=== PATIENT | female | born 1955 | race Caucasian/White ===

== ENCOUNTER → 2020-05-16 13:31 | Outpatient (CLI) | payer MEDICARE, SELFPAY ==
[2020-05-16 13:56] LABS: Alanine Aminotransferase 35 U/L (12-78); Albumin Level 4.1 g/dl (3.5-5.0); Albumin/Globulin Ratio 1.4 (1.1-1.8); Alkaline Phosphatase 71 U/L (38-126); Anion Gap 14.6 mEq/L (5-15); Aspartate Amino Transferase 38 U/L (14-36); Bilirubin,Total 0.7 mg/dl (0.2-1.3); Blood Urea Nitrogen 23 mg/dl (7-17); Calcium 10.3 mg/dl (8.4-10.2); Carbon Dioxide 26 mmol/L (22.0-30.0); Chloride 105 mmol/L (98-107); Chol/HDL Ratio 2.7 (1-3.5); Cholesterol 168 mg/dl (140-200); Estimated Glomerular Filt Rate 63 ml/min (>60); GFR (African American) 76 ML/MIN (>60); Globulin 2.9 g/dL (1.3-3.2); Glucose 121 mg/dl (74-100); HDL Cholesterol 63 mg/dl (40-60); Potassium 4.6 mmoL/L (3.5-5.1); Sodium 141 mmol/L (136-145); Triglycerides 160 mg/dl (30-150); VLDL Cholesterol 32 mg/dL (0-40)
[2020-05-16 14:08] LABS: Direct LDL Cholesterol 89.87 mg/dL (100-129)
[2020-05-16 14:15] LABS: T4 (Thyroxine) 11.2 ug/dl (5.53-11.0)
[2020-05-16 21:00] LABS: Hemoglobin A1C 6.5 % (4.0-6.0)
== END ==
PROVIDERS: Visit Provider Family Medicine
DX: E11.9 Type 2 diabetes mellitus without complications (principal); E78.5 Hyperlipidemia, unspecified
CPT/HCPCS: 80053; 80061; 83036; 84436; 84443

== ENCOUNTER 2025-07-02 11:09 | Outpatient (CLI) | payer MEDICARE, SELFPAY ==
--- NOTE | 2025-07-02 11:15 | CT_ITS ---
APPROVED REPORT Production Director: CLINICAL INDICATION Chest Pain TECHNIQUE Image Acquisition: A 128 slice MDCT scanner ([employer] [place] View) was used for data acquisition. A noncontrast coronary calcium scan was performed. A CT attenuation threshold of 130 Hounsfield units (HU) was used for the detection of calcium in contiguous voxels of 1 sq mm in area to be counted as individual lesions. Bolus tracking in the ascending aorta with a threshold of 180 HU was performed. Immediately afterwards, ECG synchronized cardiac CT was then performed from the cardiac base to apex using retrospective gating with ECG tube current modulation. A total of 85 mL of Isovue 370 mg/mL contrast medium was administered at 5 mL/sec followed by a saline flush using a biphasic injection protocol. A tube voltage of 120 KVp was used. The patient received no medications prior to the cardiac CT. The average heart rate at the time of acquisition was 56 bpm and regular. Image Reconstruction Transaxial images were reconstructed at 0.67 mm slide thickness. Data was reviewed interactively on an advanced workstation capable of 2 and 3-dimensional displays in all conventional reconstruction formats, including multiplanar reformations, maximum intensity projections, curved multiplanar reformations, and volume rendered reconstructions. When applicable, selected routine images describing the relevant coronary anatomy and pathology were saved and sent to PACS. Complications None Technical Quality Overall image quality was good. Coronary artery opacification was adequate. Total DLP (Dose-Length Product) is 1278.1 mGy-cm. The reported value represents the total of one or more individual components during the CT acquisition of this date and at this time, and as such, the same value may appear in more than one CT report depending on the interpreting/reporting physicians. COMPARISON None FINDINGS CT Coronary Calcium Scoring LMA (Left Main Artery) = 28 LAD (Left Anterior Descending) = 0 LCX (Left Coronary Circumflex) = 0 RCA (Right Coronary Artery) = 0 Total Calcium Score = 28 using the AJ-130 method. The observed calcium score of 28 is at 54th percentile for subjects of the same age, sex, and race/ethnicity. The interpretation of the calcium heart score is based on the following continuum*: 0 = no calcified plaque detected (risk of coronary artery disease is very low ??? less than 5%) 1-10 = calcium detected in extremely minimal levels (risk of coronary diseases is still low ??? less than 10%) 11-100 = mild levels of plaque detected with certainty (mild or minimal narrowing of heart arteries is likely) 101-400 = definite,at least moderate levels of plaque detected (relatively high risk of a heart attack within 3-5 years) >401-999 = extensive levels of plaque detected (high risk of heart attack, high levels of vascular disease are present, high likelihood of at least one significant coronary narrowing) *The calcium heart score quantifies the burden of coronary calcification/plaque in the coronary arteries. The calcium heart score is not able to evaluate the presence or burden of non-calcified (i.e. soft) plaque. There is mild calcification in the ascending thoracic aorta. Coronary CT Angiography The coronary arterial system is right dominant. Quantitative Stenosis Grading: Left Main (LM): The left main originates normally from the left sinus of Valsalva. The LM bifurcates into the left anterior descending artery and left circumflex artery. There is calcified plaque in the proximal LM segment, with < 25% luminal stenosis. Left Anterior Descending (LAD) and Diagonal Branches: The LAD gives off 2 diagonal branch(es). There is noncalcified plaque present in the proximal LAD segment, with up to 24-49% luminal stenosis. There is no evidence of LAD-myocardial bridge. Left Circumflex (LCX) and Obtuse Marginals (OM): The LCX gives off 1 Obtuse Marginal (OM) branch(es). The LCX and its branches are patent with no evidence of atherosclerosis. Right Coronary Artery (RCA): The RCA originates normally from the right sinus of Valsalva. The RCA gives off a posterior descending artery (PDA) and posterolateral (PL) branches. The RCA and its branches are patent with no evidence of atherosclerosis. Non-Coronary Cardiac Findings: Analysis of the left ventricular (LV) structure and function was performed after 3-D reconstruction of the LV from axial images, with user-corrected automatic contouring for assessment of LV volumes and user-defined reconstruction from oblique planes for measurement of 3-D cardiac structure and function. -The left ventricle systolic function is normal. -There is no left atrial appendage filling defect. Two right pulmonary veins and two left pulmonary veins drain normally into the left atrium. -No pericardial thickening or calcification. -Central and branch pulmonary arteries in the [id number] are unremarkable. -Thoracic aorta within the visualized thoracic aortic-branches in the [id number]-[id number] is unremarkable. Extracardiac Structures No significant extra-cardiac findings. Note, however, that this study is focused on the cardiac findings. IMPRESSION - Presence of coronary calcification with an Agatston score = 28 using the AJ-130 method. -The observed calcium score of 28 is at 54th percentile for subjects of the same age, sex, and race/ethnicity. - Mild atherosclerotic coronary disease in the LM and proximal LAD, with no evidence of significant flow-limiting atherosclerosis of the coronary arteries. -CAD-RADS 2. Management recommendations per ACC/AHA guidelines*, as clinically appropriate. -Mild calcification in the ascending thoracic aorta. *Recommendations: CAD RADS 0: Reassurance. Consider non-atherosclerotic causes of chest pain. CAD RADS 1: Consider non-atherosclerotic causes of chest pain. Consider preventive therapy and risk factor modification. CAD RADS 2: Consider non-atherosclerotic causes of chest pain. Consider preventive therapy and risk factor modification, particularly for patients with nonobstructive plaque in multiple segments. CAD RADS 3: Consider further functional testing. Consider symptom-guided anti-ischemic and preventive pharmacotherapy as well as risk factor modification per published guideline statements. CAD RADS 4A: Consider further functional testing or invasive coronary angiography with revascularization per published guideline statements. Consider symptom-guided anti-ischemic and preventive pharmacotherapy as well as risk factor modification per published guideline statements. CAD RADS 4B: Invasive coronary angiography recommended with revascularization per published guideline statements. Consider symptom-guided anti-ischemic and preventive pharmacotherapy as well as risk factor modification per published guideline statements. CAD RADS 5: Consider invasive angiography and/or viability assessment with revascularization per published guideline statements. Consider symptom-guided anti-ischemic and preventive pharmacotherapy as well as risk factor modification per published guideline statements. CRITICAL RESULT None COMMUNICATION Per this written report The coronary and cardiac findings of this CCTA were reviewed, reported, and signed by Keith Sahu MD (Medical Administrator) Conclusion Electronically signed by : Jessica Sahu MD 07/02/2025 14:16:37
--- OUTSIDE RECORDS SUMMARY | 2025-07-02 11:26 | XMS_ITS | Referral Summary ---
Author Organization [facility] Address [address] [place] [address] [place] [address] Care Team Providers Care Cloth Picker Name Role Phone Unavailable Primary Care Provider Unavailabl e Social History Tobacco Use Types Packs/Day Years Used Date Smoking Tobacco: Never Assessed Comments Unknown Sex and Gender Information Value Date Recorded Sex Assigned at Not on file Legal Sex Female 7:36 PM EDT Gender Identity Not on file Sexual Orientation Not on file Plan of Treatment Not on file
--- OUTSIDE RECORDS SUMMARY | 2025-07-02 11:26 | XMS_ITS | Clinical Summary ---
Author Organization [facility] Address [address] [place] [address] Care Team Providers Care Waiter/Waitress Cocktail Lounge Name Role Phone Unavailable Primary Care Provider Unavailabl e Social History Tobacco Use Types Packs/Day Years Used Date Smoking Tobacco: Never Assessed Comments Unknown Sex and Gender Information Value Date Recorded Sex Assigned at Not on file Legal Sex Female 7:36 PM EDT Gender Identity Not on file Sexual Orientation Not on file Plan of Treatment Health Maintenance Due Date Last Done Comments Hepatitis C Screening 1953 DTap,Tdap,and Td (1 - Tdap) 1964 Mammogram Screening 1993 Colonoscopy 1998 Pneumococcal 50+ (1 of 1 - PCV) 2003 Shingrix (#1) 2003 DEXA Scan 2018 Influenza Vaccine (#1) 2025 RSV Vaccine (60+ or ) (1 - 1-dose 75+ series) 2028 HPV Aged Out No longer eligi ble based on patient's age to complete this topic Meningococcal conjugate felicita nt 4 (MCV4) Aged Out No longer eligible b ased on patient's age to complete this topic RSV Immunization (<20 months) Aged Out No longer eligible based on patient's age to complete this topic
--- OUTSIDE RECORDS SUMMARY | 2025-07-02 11:26 | XMS_ITS | Clinical Summary ---
Author Organization [facility] Shay Lafleur Address [address] [facility] [place] [address] Phone Care Team Providers Care Systems Specialist Name Role Phone Carlos Blake MD Primary Care Provider [phone] Allergies Active Allergy Reactions Criticality Noted Date Comments No Known Drug Allergies 01/30/2015 Medications pantoprazole (PROTONIX) 40 mg Oral Tablet, Delayed Release (E.C.) Take 40 mg by mouth daily. Active glyBURIDE-metFO RMIN (GLUCOVANCE) 2.5-500 mg Oral Tablet Take 1 Tab by mouth 2 times daily (with meals). Active pravastatin (PRAVACHOL) 20 mg Oral Tablet Take 20 mg by mouth daily. Active levothyroxine (SYNTHROID) 100 mcg Oral Tablet Take 100 mcg by mouth daily. Active lisinopril-hydr ochlorothiazide (PRINZIDE;ZESTO RETIC) 10-12.5 mg Oral Tablet Take 1 Tab by mouth daily. Active aspirin 81 mg Oral Tablet, Delayed Release (E.C.) Take 81 mg by mouth daily. Active nitroGLYCERIN (NITROSTAT) 0.4 mg SL Tablet, Sublingual Place 1 Tab under the tongue every 5 minutes as needed for Chest pain. 25 Tab 0 01/31/2015 Active aluminum & magnesium hydroxide-simet hicone 200-200-20 mg/5 mL Oral Suspension Take 15 mL by mouth every 4 hours as needed for Pain or Nausea. 354 mL 0 01/31/2015 Active Active Problems Problem Noted Date Diagnosed Date Hypertension 01/31/2015 Diabetes mellitus 01/31/2015 Hyperlipidemia 01/31/2015 Thyroid disease 01/31/2015 Chest pain 01/31/2015 Dizziness 01/31/2015 Diaphoresis 01/31/2015 Immunizations Immunization Administration Dates Next Due Influenza Intradermal 07/24/2014 Pneumococcal Polysaccharide 23 Valent 01/31/2015 Surgical History Surgery Date Site/Laterality Comments CHOLECYSTECTOMY HYSTERECTOMY APPENDECTOMY BLADDER SURGERY Medical History Medical History Date Comments Hypertension Diabetes mellitus (HCC) Thyroid disease Hyperlipidemia Family History Medical History Relation Name Comments Diabetes Brother Heart Disease Brother Heart Disease Mother Relation Name Status Comments Brother Alive Mother Social History Tobacco Use Types Packs/Day Years Used Date Smoking Tobacco: Never Smokeless Tobacco: Never Alcohol Use Standard Drinks/Week Comments No 0 (1 standard drink = 0.6 oz pur e alcohol) Comments No Sex and Gender Information Value Date Recorded Sex Assigned at Not on file Legal Sex Female 5:01 AM EDT Gender Identity Not on file Sexual Orientation Not on file Obstetrics History Last Filed Vital Signs Vital Sign Reading Time Taken Comments Blood Pressure 113/70 01/31/2015 11:40 AM EDT Pulse 78 01/31/2015 11:40 AM EDT Temperature 36.4 C (97.5 F) 01/31/2015 11:35 AM EDT Respiratory Rate 18 01/31/2015 11:35 AM EDT Oxygen Saturation 100% 01/31/2015 11:35 AM EDT Inhaled Oxygen Concentration - - Weight 77.8 kg (171 lb 9.6 oz) 01/31/2015 4:27 A M EDT Height 156.2 cm (5' 1.5 ) 01/30/2015 8:48 PM EDT Body Mass Index 31.9 01/30/2015 8:48 PM EDT Plan of Treatment Health Maintenance Due Date Last Done Comments Wellness Exam Medicare 1956 Lipids 1963 Diabetic Eye Exam 1971 Hemoglobin A1c 1971 Hepatitis C Screening 1971 Kidney Health: uACR 1971 Cologuard 1998 Colon Cancer Screening 1998 Colonoscopy 1998 FIT 1998 Sigmoidoscopy 1998 Virtual Colonography 1998 Zoster (2 of 3) 10/12/2013 08/17/2013 Kidney Health: eGFR 02/01/2016 01/31/2015, 5 Pneumococcal Vaccine 50+ (2 of 2 - PCV) 11/17/2021 11/17/2020, 01/31/2015 COVID-19 Vaccine (4 - season) 2025 09/23/2021, 02/18/2021, 01/16/2021 Influenza Vaccine (#1) 2025 3, 07/30/2022, 07/28/2021, Additional history exists Breast Cancer Screening 05/03/2026 05/03/20 24, 12/31/2022, 01/04/2022 DTaP/TDaP/Td (2 - Td or Tdap) 04/05/2027 04/05/2017 Bone Density Screening Completed 10/30/2012 Hepatitis B Vaccine Aged Out No longe r eligible based on patient's age to complete this topic Meningococcal B Vaccine Aged Out No l onger eligible based on patient's age to complete this topic Procedures Procedure Name Priority Date/Time Associated Diagnosis Comments MM MAMMO DIGITAL CONOR SCREEN BILAT Routine 05/03/2024 9:01 AM EDT Encounter for screening mammogram for malignant neoplasm of breast BASIC METABOLIC PANEL Routine 01/31/2015 3:26 AM EDT DX BONE DENSITY AXIAL SKELETON Routine 10/30/2012 1:51 PM EST Osteoporosis, unspecified from Last 3 Months or Most Recently Relevant to Health Maintenance Results * MM MAMMO DIGITAL CONOR SCREEN BILAT (05/03/2024 9:01 AM EDT) Anatomical Region Laterality Modality Breast Bilateral Mammography 05/04/2024 10:1 3 AM EDT Impressions 05/04/2024 10:13 AM EDT Negative (LLR-Ovekrxog-0) ~ RECOMMENDATION: Routine screening mammogram in 1 year. ~ DISCLAIMER * Any patient with a palpable abnormality, unexplained by breast imaging, should be managed on clinical basis by the attending physician. * Breast imaging has a false negative rate of 15%. * The patient was notified by mail of the results of this examination. *The patient's information was entered into a reminder system with a target due date for the next mammogram, in accordance with the [employer] and the Society of Breast Imaging recommendations. Narrative 05/04/2024 10:13 AM EDT Procedure:MM MAMMO DIGITAL CONOR SCREEN BILAT ~ Reason for exam: screening, asymptomatic. Z12.31-Encounter for screening mammogram for malignant neoplasm of [id number]-[id number]-CM ~ MM MAMMO DIGITAL CONOR SCREEN BILAT Bilateral CC and MLO view(s) were taken. There are scattered fibroglandular densities. Prior study comparison: Compared with 12/31/22, 01/04/22 and dating back to June 16, 2015. No significant interval change. ~ Procedure Note Danyell Jauregui MD - 05/04/2024 Procedure:MM MAMMO DIGITAL CONOR SCREEN BILAT ~ Reason for exam: screening, asymptomatic. Z12.31-Encounter for screening mammogram for malignant neoplasm of [id number]-PJZ-81-CM ~ MM MAMMO DIGITAL CONOR SCREEN BILAT Bilateral CC and MLO view(s) were taken. There are scattered fibroglandular densities. Prior study comparison: Compared with 12/31/22, 01/04/22 and dating backto June 16, 2015. No significant interval change. ~ IMPRESSION: Negative (IXX-[id number]-5) ~ RECOMMENDATION: Routine screening mammogram in 1 year. ~ DISCLAIMER * Any patient with a palpable abnormality, unexplained by breast imaging, should be managed on clinical basis by the attending physician. * Breast imaging has a false negative rate of 15%. * The patient was notified by mail of the results of this examination. *The patient's information was entered into a reminder system with atarget due date for the next mammogram, in accordance with the [employer] and the Society of Breast Imaging recommendations. Mimi Call NP [facility] MAMMOGRAPHY ORDERABLES Final Result * (ABNORMAL) BASIC METABOLIC PANEL (01/31/2015 3:26 AM EDT) Sodium 137 136 - 145 mmol/L [facility] Potassium 3.8 3.5 - 5.0 mmol/L [facility] Chloride 99 98 - 107 mmol/L [facility] Total CO2 26 22 - 29 mmol/L [facility] Anion Gap 12 7 - 16 mmol/L [facility] Calcium 9.1 8.8 - 10.2 mg/dL [facility] Glucose Lvl 152(H) 82 - 100 mg/dL [facility] BUN 22 8 - 23 mg/dL [facility] Creatinine 0.87 0.51 - 1.30 mg/dL [facility] GFR Afr Am >60 [facility] GFR Non Afr Am >60 [facility] Blood specimen (specimen) UPPER LIMB STRUCTURE / Unknown 01/31/2015 3:26 AM EDT 01/31/2015 3:34 AM EDT us Yudy Marcano [employer] CHEMISTRY ORDERABLES Edite d Result - Final [facility] [address] [place] [id number] * DX BONE DENSITY AXIAL SKELETON (10/30/2012 1:51 PM EST) Anatomical Region Laterality Modality Dexa Scan Narrative 11/22/2012 1:57 PM EST DEXA report can be found in the media specialist folder. These reports are signed manually and then scanned in. Procedure Note Bridgette Gil MD - 11/22/2012 DEXA report can be found in the media specialist folder. These reports aresigned manually and then scanned in. us Allen Thorpe MD IMG DEXA ORDERABLES Final Res ult from Last 3 Months or Most Recently Relevant to Health Maintenance Insurance [facility] [employer] [facility] [id number] [facility] [id number] [employer] Advance Directives For more information, please contact: [phone] * Full Code (Latest Code Status on File) Date Activated Date Inactivated Comments 01/31/2015 12:15 AM 01/31/2015 7:44 PM Care Teams Systems Specialist Relationship Specialty Start Date End Date Carlos Blake MD PCP - General Family Medicine 10/30/12
[2025-07-02 11:55] VITALS: BMI 22.8
[2025-07-02 12:14] VITALS: BP 140/75; PULSE 57; RESP 16; TEMP 36.2; O2SAT 100
--- OUTSIDE RECORDS SUMMARY | 2025-07-02 12:25 | XMS_ITS | CCD ---
Author Organization Unknown Care Team Providers Care Track Layer Head Name Role Phone Unavailable Primary Care Provider Unavailabl e Unavailable Chronic Care Management Unavaila ble Summary Purpose DataExchange Insurance Providers Payer name Policy type / Coverage type Covered constitution party ID Effective Begin Date Effective End Date [facility] [id number] Unknown Unknown Family History Family History data not found Medication Administered No Medication Administered data Reason For Visit No Reason For Visit data Medical Equipment No Medical Equipment data Advance Directives No Advance Directive data
[2025-07-02 12:29] LABS: Chloride 104 mmol/L (98-107); Potassium 3.9 mmoL/L (3.5-5.1); Sodium 140 mmol/L (136-145)
[2025-07-02 12:32] LABS: Anion Gap 11.9 mEq/L (5-15); Blood Urea Nitrogen 18 mg/dl (7-17); Calcium 10.2 mg/dl (8.4-10.2); Carbon Dioxide 28 mmol/L (22.0-30.0); Creatinine Clearance Estimated 46 mL/min (50-200); Creatinine,Serum 0.80 mg/dl (0.52-1.04); Estimated Glomerular Filt Rate 71 ml/min (>60); GFR (African American) 86 ML/MIN (>60); Glucose 88 mg/dl (74-100)
[2025-07-02 12:50] VITALS: BP 180/78; PULSE 58; RESP 18; O2SAT 98
[2025-07-02 12:55] VITALS: BP 166/90; PULSE 56; RESP 18; O2SAT 98
[2025-07-02] MEDS: 0.9 % SODIUM CHLORIDE 50 ML VIAL IV (12:59)
[2025-07-02] MEDS: SODIUM CHLORIDE 0.9% 10ML SYR (RAD ONLY) 10 ML IV (12:59)
[2025-07-02] MEDS: IOPAMIDOL-370 (76%);100ML BOTTLE 85 ML IV (12:59)
[2025-07-02 13:00] VITALS: BP 158/81; PULSE 61; RESP 18; O2SAT 98
[2025-07-02 13:04] VITALS: BP 144/76; PULSE 62; RESP 18; TEMP 36.3; O2SAT 98
== END 2025-07-02 13:04 | disposition home or self-care (01) ==
PROVIDERS: PCP Nurse Practitioner Family; Visit Provider Internal Medicine Cardiovascular Disease
DX: I25.10 Atherosclerotic heart disease of native coronary artery without angina pectoris (principal); I70.0 Atherosclerosis of aorta; R94.30 Abnormal result of cardiovascular function study, unspecified
CPT/HCPCS: 75574; 80048; Q9967